=== PATIENT | male | born 1940 | race Caucasian/White ===

== ENCOUNTER 2017-04-20 00:18 | Emergency (ER) | payer OTHER, BC ==
[~2017-04-20] VITALS: Ht 172.7 cm; Wt 83.0 kg
[2017-04-20] MEDS ORDERED: CATAPRES0.2 MG PO (00:29)
[2017-04-20] MEDS ORDERED: APRESOLINE25 MG PO (00:30)
[2017-04-20] MEDS ORDERED: VALIUM2 MG PO (00:30)
[2017-04-20] MEDS ORDERED: HALCION0.25 MG PO (00:30)
[2017-04-20 01:25] LABS: BASOPHIL COUNT 0.1 K/uL (0-0.1); EOSINOPHIL (%) 0.8 % (0-5); EOSINOPHIL COUNT 0.1 K/uL (0-0.3); HEMATOCRIT 44.3 % (38.0-50.0); IMMATURE GRANULOCYTE (%) 0.7 % (0.0-0.7); IMMATURE GRANULOCYTE COUNT 0.1 K/uL; INSTRUMENT ABS NEUTROPHIL CT 5.1 K/uL; LYMPHOCYTE COUNT 1.6 K/uL (1.0-2.8); MCH 30.5 PG (29.0-34.0); MCHC 33.4 G/DL (30.0-36.0); MCV 91.2 FL (86-99); MEAN PLAT.VOLUME 11.8 uM^3 (9.0-12.4); MONOCYTE (%) 10.4 % (3-12); MONOCYTE COUNT 0.8 K/uL (0-0.8); NEUTROPHIL (%) 66.1 % (45-76); NEUTROPHIL COUNT 5.1 K/uL (1.8-6.4); PLATELET COUNT 186 K/uL (156-360); RBC DIS.WIDTH-CV 12.8 % (11.8-14.6); RBC DIS.WIDTH-SD 42.4 % (39-53); RED BLOOD COUNT 4.86 M/uL (4.00-5.50); WHITE BLOOD COUNT 7.7 K/uL (4.1-10.2)
[2017-04-20 01:35] LABS: CHLORIDE 105 mEq/L (99-109); POTASSIUM 4.3 mEq/L (3.7-5.4); SODIUM 141 mEq/L (136-147)
[2017-04-20 01:36] LABS: MAGNESIUM 2.4 mg/dL (1.3-2.7)
[2017-04-20 01:38] LABS: GLUCOSE 111 mg/dL (70-99)
[2017-04-20 01:39] LABS: ANION GAP 8 MEQ/L (2-14)
[2017-04-20 01:40] LABS: TOTAL BILIRUBIN 0.5 mg/dL (0.0-1.0)
[2017-04-20 01:41] LABS: ALKALINE PHOSPHATASE 70 IU/L (3-129); GFR ESTIMATE (CALCULATED) > 59 mL/min/
[2017-04-20 01:42] LABS: UREA NITROGEN (BUN) 21 mg/dL (9-23)
[2017-04-20 01:44] LABS: CREATINE KINASE 117 IU/L (1-294); TOTAL CK 117 IU/L (1-294)
[2017-04-20 01:45] LABS: TROP-I INTERPRETATION NEGATIVE; TROPONIN-I 0.01 ng/mL (0.0-0.30)
[2017-04-20 01:50] LABS: CK-MB 2.9 ng/mL (0.0-4.9)
[2017-04-20 02:41] VITALS: BP 171/88
== END 2017-04-20 02:41 | disposition home or self-care (01) ==
LOC: EME 00:18
PROVIDERS: Emergency Medicine
DX: I10 Essential (primary) hypertension (principal); R51 Headache; Z87.891 Personal history of nicotine dependence
CPT/HCPCS: 70450; 71020; 80053; 81003; 82550; 82553; 83735; 84484; 85025; 93005; 99281; 99285; J2060

== ENCOUNTER 2017-05-19 08:03 | Emergency (ER) | payer OTHER, BC ==
[~2017-05-19] VITALS: Ht 170.2 cm; Wt 86.7 kg
[~2017-05-19 08:03] MED LIST: APRESOLINE25 MG PO; CATAPRES0.2 MG PO; HALCION0.25 MG PO; VALIUM2 MG PO
[2017-05-19 09:08] LABS: HEMATOCRIT 39.9 % (38.0-50.0); MCH 31.4 PG (29.0-34.0); MCHC 33.8 G/DL (30.0-36.0); MCV 92.8 FL (86-99); MEAN PLAT.VOLUME 12.3 uM^3 (9.0-12.4); PLATELET COUNT 156 K/uL (156-360); RBC DIS.WIDTH-SD 43.9 % (39-53); WHITE BLOOD COUNT 6.8 K/uL (4.1-10.2)
[2017-05-19 09:20] LABS: ADD MIUA? NO; BILIRUBIN NEGATIVE; BLOOD NEGATIVE; COLOR YELLOW ((YELLOW)); GLUCOSE (STRIP) NEGATIVE; KETONES NEGATIVE; LEUKOCYTES NEGATIVE; NITRITE NEGATIVE; PROTEIN (STRIP) NEGATIVE; SPECIFIC GRAVITY 1.015 (1.000-1.030); UCUL ADDED? NO; UROBILINOGEN 0.2 MG/DL (0.2-1.0)
[2017-05-19 09:21] LABS: CHLORIDE 104 mEq/L (99-109); POTASSIUM 3.5 mEq/L (3.7-5.4); SODIUM 139 mEq/L (136-147)
[2017-05-19 09:23] LABS: GLUCOSE 110 mg/dL (70-99)
[2017-05-19 09:24] LABS: ANION GAP 7 MEQ/L (2-14)
[2017-05-19 09:25] LABS: TOTAL BILIRUBIN 0.2 mg/dL (0.0-1.0)
[2017-05-19 09:26] LABS: ALKALINE PHOSPHATASE 86 IU/L (3-129)
[2017-05-19 09:27] LABS: GFR ESTIMATE (CALCULATED) > 59 mL/min/ (58.99-99999)
[2017-05-19 09:28] LABS: UREA NITROGEN (BUN) 15 mg/dL (9-23)
[2017-05-19 09:30] LABS: LIPASE 51 U/L (1.0-51.0)
[2017-05-19] MEDS ORDERED: TAMIFLU75 MG PO (11:09)
[2017-05-19] MEDS ORDERED: HYCODAN SYRUP480 ML PO (11:09)
[2017-05-19 11:58] VITALS: BP 148/75
== END 2017-05-19 11:58 | disposition home or self-care (01) ==
LOC: EME 08:03
PROVIDERS: Emergency Medicine
DX: J10.1 Influenza due to other identified influenza virus with other respiratory manifestations (principal); I10 Essential (primary) hypertension; Z87.891 Personal history of nicotine dependence
CPT/HCPCS: 71010; 80053; 81003; 83605; 83690; 85027; 87040; 87502; 99281; 99285

== ENCOUNTER 2017-05-21 00:02 | Inpatient (IN) | payer OTHER, BC ==
[~2017-05-21] VITALS: Ht 170.2 cm; Wt 90.2 kg
[~2017-05-21 00:02] MED LIST changes: +HYCODAN SYRUP480 ML PO; +TAMIFLU75 MG PO
[2017-05-21 01:18] LABS: HEMATOCRIT 42.2 % (38.0-50.0); MCH 30.8 PG (29.0-34.0); MCHC 33.4 G/DL (30.0-36.0); MCV 92.1 FL (86-99); MEAN PLAT.VOLUME 12.3 uM^3 (9.0-12.4); PLATELET COUNT 156 K/uL (156-360); RBC DIS.WIDTH-CV 13.1 % (11.8-14.6); RED BLOOD COUNT 4.58 M/uL (4.00-5.50); WHITE BLOOD COUNT 18.7 K/uL (4.1-10.2)
[2017-05-21 01:34] LABS: CHLORIDE 102 mEq/L (99-109); POTASSIUM 3.9 mEq/L (3.7-5.4); SODIUM 138 mEq/L (136-147)
[2017-05-21 01:37] LABS: ANION GAP 15 MEQ/L (2-14)
[2017-05-21 01:39] LABS: GFR ESTIMATE (CALCULATED) 19 mL/min/ (58.99-99999)
[2017-05-21 01:42] LABS: TROP-I INTERPRETATION POSITIVE
[2017-05-21 01:44] LABS: TROPONIN-I 34.07 ng/mL (0.0-0.30)
[2017-05-21 01:54] LABS: EOSINOPHIL (%) 0 % (0-5); IMMATURE GRANULOCYTE COUNT 0.2 K/uL; INSTRUMENT ABS NEUTROPHIL CT 16.6 K/uL; LYMPHOCYTE COUNT 0.6 K/uL (1.0-2.8); MONOCYTE (%) 6.6 % (3-12); MONOCYTE COUNT 1.2 K/uL (0-0.8); NEUTROPHIL COUNT 16.6 K/uL (1.8-6.4)
[2017-05-21 02:19] LABS: GLUCOSE 79 mg/dL (70-99); UREA NITROGEN (BUN) 34 mg/dL (9-23)
[2017-05-21 02:21] LABS: CREATINE KINASE 20254 IU/L (1-294)
[2017-05-21 04:32] LABS: INTER. NORMALIZED RATIO 1.2; PROTHROMBIN TIME 13.9 SEC (10.2-12.9)
[2017-05-21 04:34] LABS: PTT 28.1 SEC (25-37)
[2017-05-21 04:47] LABS: ALKALINE PHOSPHATASE 91 IU/L (3-129); DIRECT BILIRUBIN 0.6 mg/dL (0.0-0.3); TOTAL BILIRUBIN 0.9 MG/DL (0.0-1.0)
[2017-05-21 06:19] LABS: HEMATOCRIT 36.3 % (38.0-50.0); MCH 30.9 PG (29.0-34.0); MCHC 33.6 G/DL (30.0-36.0); MCV 91.9 FL (86-99); MEAN PLAT.VOLUME 12.1 uM^3 (9.0-12.4); PLATELET COUNT 128 K/uL (156-360); RBC DIS.WIDTH-CV 13.2 % (11.8-14.6); RBC DIS.WIDTH-SD 45.4 % (39-53); RED BLOOD COUNT 3.95 M/uL (4.00-5.50); WHITE BLOOD COUNT 15.3 K/uL (4.1-10.2)
[2017-05-21 06:31] LABS: SERUM ETHYL ALCOHOL < 10 mg/dL
[2017-05-21 06:34] LABS: SALICYLATE < 5.0 MG/DL (15-30)
[2017-05-21 06:39] LABS: TROP-I INTERPRETATION POSITIVE
[2017-05-21] MEDS ORDERED: VALIUM2 MG PO (09:19)
[2017-05-21] MEDS ORDERED: HYDRALAZINE HCL25 MG PO (09:19)
[2017-05-21] MEDS ORDERED: CATAPRES0.2 MG PO (09:21)
[2017-05-21] MEDS ORDERED: MIRALAX119 GM PO (09:22)
[2017-05-21] MEDS ORDERED: CLONAZEPAM0.5 MG PO (09:22)
[2017-05-21] MEDS ORDERED: SENNA-S TABLET1 EACH PO (09:23)
[2017-05-21] MEDS ORDERED: CONSTULOSE10 GM/15 M PO (09:24)
[2017-05-21] MEDS ORDERED: TRAZODONE HCL100 MG PO (09:25)
[2017-05-21 09:39] LABS: CHLORIDE 105 mEq/L (99-109); POTASSIUM 3.7 mEq/L (3.7-5.4); SODIUM 138 mEq/L (136-147)
[2017-05-21 09:40] VITALS: BP 135/84
[2017-05-21 09:42] LABS: ANION GAP 14 MEQ/L (2-14)
[2017-05-21 09:43] LABS: GLUCOSE 131 mg/dL (70-99)
[2017-05-21 09:44] LABS: GFR ESTIMATE (CALCULATED) 20 mL/min/ (58.99-99999)
[2017-05-21 09:45] LABS: UREA NITROGEN (BUN) 37 mg/dL (9-23)
[2017-05-21 09:53] LABS: CK-MB 186.5 ng/mL (0.0-4.9)
[2017-05-21 10:00] VITALS: BP 138/86
[2017-05-21 11:01] LABS: METH RESISTANT S AUREUS PCR NEGATIVE (NEGATIVE)
[2017-05-21 11:04] LABS: CREATINE KINASE 22260 IU/L (1-294)
[2017-05-21 11:05] LABS: PROBE CHECK PASS; SPECIMEN PROCESSING CONTROL PASS
[2017-05-21 11:06] LABS: TOTAL CK 22260 IU/L (1-294)
[2017-05-21 12:00] VITALS: BP 143/93
[2017-05-21 13:24] LABS: TROP-I INTERPRETATION POSITIVE; TROPONIN-I 23.13 ng/mL (0.0-0.30)
[2017-05-21 17:00] VITALS: BP 162/94
[2017-05-21 20:00] VITALS: BP 162/88
[2017-05-22] VITALS (7 sets, daily range): BP systolic 161–194; BP diastolic 80–97
[2017-05-22 05:51] LABS: MCH 31.5 PG (29.0-34.0); MCHC 34.1 G/DL (30.0-36.0); MCV 92.5 FL (86-99); MEAN PLAT.VOLUME 12.6 uM^3 (9.0-12.4); PLATELET COUNT 123 K/uL (156-360); RBC DIS.WIDTH-CV 13.3 % (11.8-14.6); RBC DIS.WIDTH-SD 46.2 % (39-53); WHITE BLOOD COUNT 14.7 K/uL (4.1-10.2)
[2017-05-22 06:01] LABS: INTER. NORMALIZED RATIO 1.3; PROTHROMBIN TIME 14.5 SEC (10.2-12.9)
[2017-05-22 06:05] LABS: TROP-I INTERPRETATION POSITIVE; TROPONIN-I 13.95 ng/mL (0.0-0.30)
[2017-05-22 06:43] LABS: ALKALINE PHOSPHATASE 85 IU/L (3-129); ANION GAP 8 MEQ/L (2-14); CHLORIDE 106 MEQ/L (99-109); DIRECT BILIRUBIN 0.4 mg/dL (0.0-0.3); SAMPLE HEMOLYSIS CHECK 0; SAMPLE ICTERIC CHECK 0; SAMPLE LIPEMIA CHECK 0; SODIUM 137 MEQ/L (136-147); TOTAL BILIRUBIN 0.8 MG/DL (0.0-1.0); UREA NITROGEN (BUN) 54 mg/dL (9-23)
[2017-05-22 06:48] LABS: CREATINE KINASE 11296 IU/L (1-294); GFR ESTIMATE (CALCULATED) 15 mL/min/ (58.99-99999); GLUCOSE 76 mg/dL (70-99)
[2017-05-22 16:39] LABS: ADD MIUA? YES; BILIRUBIN NEGATIVE; BLOOD LARGE; COLOR YELLOW ((YELLOW)); GLUCOSE (STRIP) NEGATIVE; KETONES NEGATIVE; LEUKOCYTES NEGATIVE; NITRITE NEGATIVE; PROTEIN (STRIP) NEGATIVE; SPECIFIC GRAVITY 1.005 (1.000-1.030); UROBILINOGEN 0.2 MG/DL (0.2-1.0)
[2017-05-22 17:31] LABS: BACTERIA 1+ /HPF; EPITHELIAL CELLS 1+ /HPF; MUCUS 1+ /LPF; WHITE BLOOD CELLS 0-5 /HPF (0-5)
[2017-05-23] VITALS (7 sets, daily range): BP systolic 139–201; BP diastolic 70–84
[2017-05-23 05:16] LABS: MCH 30.2 PG (29.0-34.0); MCHC 33.4 G/DL (30.0-36.0); MCV 90.2 FL (86-99); MEAN PLAT.VOLUME 12.5 uM^3 (9.0-12.4); PLATELET COUNT 137 K/uL (156-360); RBC DIS.WIDTH-CV 13.2 % (11.8-14.6); RBC DIS.WIDTH-SD 44.4 % (39-53); RED BLOOD COUNT 3.88 M/uL (4.00-5.50); WHITE BLOOD COUNT 12.3 K/uL (4.1-10.2)
[2017-05-23 05:18] LABS: INTER. NORMALIZED RATIO 1.1; PROTHROMBIN TIME 12.8 SEC (10.2-12.9)
[2017-05-23 09:24] LABS: ANION GAP 11 MEQ/L (2-14); CHLORIDE 110 MEQ/L (99-109); DIRECT BILIRUBIN 0.4 mg/dL (0.0-0.3); GFR ESTIMATE (CALCULATED) 15 mL/min/ (58.99-99999); GLUCOSE 81 mg/dL (70-99); POTASSIUM 3.8 MEQ/L (3.7-5.4); SAMPLE HEMOLYSIS CHECK 0; SAMPLE ICTERIC CHECK 0; SAMPLE LIPEMIA CHECK 0; SODIUM 141 MEQ/L (136-147); TOTAL BILIRUBIN 0.9 MG/DL (0.0-1.0); UREA NITROGEN (BUN) 64 mg/dL (9-23)
[2017-05-23 09:25] LABS: ALKALINE PHOSPHATASE 111 IU/L (3-129); CREATINE KINASE 3732 IU/L (1-294)
[2017-05-24 04:00] VITALS: BP 154/72
[2017-05-24 06:21] LABS: PROTHROMBIN TIME 11.6 SEC (10.2-12.9)
[2017-05-24 07:10] LABS: ALKALINE PHOSPHATASE 113 IU/L (3-129); ANION GAP 11 MEQ/L (2-14); CHLORIDE 112 MEQ/L (99-109); DIRECT BILIRUBIN 0.3 mg/dL (0.0-0.3); GFR ESTIMATE (CALCULATED) 17 mL/min/ (58.99-99999); GLUCOSE 74 mg/dL (70-99); POTASSIUM 3.5 MEQ/L (3.7-5.4); SAMPLE HEMOLYSIS CHECK 0; SAMPLE ICTERIC CHECK 0; SAMPLE LIPEMIA CHECK 0; SODIUM 142 MEQ/L (136-147); TOTAL BILIRUBIN 0.9 MG/DL (0.0-1.0); UREA NITROGEN (BUN) 67 mg/dL (9-23)
[2017-05-24 07:13] LABS: CREATINE KINASE 1266 IU/L (1-294)
[2017-05-24 10:00] VITALS: BP 184/82
[2017-05-24 12:40] VITALS: BP 159/75
[2017-05-24 16:51] VITALS: BP 194/88
[2017-05-24 20:28] VITALS: BP 139/67
[2017-05-25] VITALS (7 sets, daily range): BP systolic 154–199; BP diastolic 72–90
[2017-05-25 06:32] LABS: MCH 30.7 PG (29.0-34.0); MCHC 33.8 G/DL (30.0-36.0); MCV 90.9 FL (86-99); MEAN PLAT.VOLUME 12.1 uM^3 (9.0-12.4); NRBC (%) 0.2 /100 WBC (0-0); PLATELET COUNT 176 K/uL (156-360); RBC DIS.WIDTH-CV 13.6 % (11.8-14.6); RBC DIS.WIDTH-SD 45.3 % (39-53); RED BLOOD COUNT 4.07 M/uL (4.00-5.50); WHITE BLOOD COUNT 10.8 K/uL (4.1-10.2)
[2017-05-25 07:06] LABS: ALKALINE PHOSPHATASE 111 IU/L (3-129); ANION GAP 14 MEQ/L (2-14); CHLORIDE 112 MEQ/L (99-109); CREATINE KINASE 860 IU/L (1-294); DIRECT BILIRUBIN 0.2 mg/dL (0.0-0.3); GLUCOSE 87 mg/dL (70-99); POTASSIUM 3.2 MEQ/L (3.7-5.4); SAMPLE HEMOLYSIS CHECK 0; SAMPLE ICTERIC CHECK 0; SAMPLE LIPEMIA CHECK 0; SODIUM 144 MEQ/L (136-147); UREA NITROGEN (BUN) 63 mg/dL (9-23)
[2017-05-25 07:08] LABS: GFR ESTIMATE (CALCULATED) 22 mL/min/ (58.99-99999); TOTAL BILIRUBIN 0.7 MG/DL (0.0-1.0)
[2017-05-25 07:10] LABS: TROP-I INTERPRETATION POSITIVE; TROPONIN-I 1.08 ng/mL (0.0-0.30)
[2017-05-25 08:26] LABS: MAGNESIUM 2.2 mg/dl (1.3-2.7)
[2017-05-26 00:01] VITALS: BP 158/82
[2017-05-26 04:12] VITALS: BP 162/78
[2017-05-26 07:26] LABS: HEMATOCRIT 38.2 % (38.0-50.0); MCHC 34.3 G/DL (30.0-36.0); MCV 90.5 FL (86-99); MEAN PLAT.VOLUME 12.1 uM^3 (9.0-12.4); PLATELET COUNT 195 K/uL (156-360); RBC DIS.WIDTH-CV 13.9 % (11.8-14.6); RBC DIS.WIDTH-SD 45.8 % (39-53); RED BLOOD COUNT 4.22 M/uL (4.00-5.50); WHITE BLOOD COUNT 11.2 K/uL (4.1-10.2)
[2017-05-26 07:44] VITALS: BP 192/84
[2017-05-26 08:10] LABS: ALKALINE PHOSPHATASE 105 IU/L (3-129); ANION GAP 12 MEQ/L (2-14); CHLORIDE 114 MEQ/L (99-109); DIRECT BILIRUBIN 0.1 mg/dL (0.0-0.3); GFR ESTIMATE (CALCULATED) 24 mL/min/ (58.99-99999); GLUCOSE 91 mg/dL (70-99); POTASSIUM 3.4 MEQ/L (3.7-5.4); SAMPLE HEMOLYSIS CHECK 0; SAMPLE ICTERIC CHECK 0; SAMPLE LIPEMIA CHECK 0; SODIUM 147 MEQ/L (136-147); TOTAL BILIRUBIN 0.7 MG/DL (0.0-1.0); UREA NITROGEN (BUN) 56 mg/dL (9-23)
[2017-05-26 11:34] VITALS: BP 168/70
[2017-05-26 16:49] VITALS: BP 168/76
[2017-05-26 20:44] VITALS: BP 178/80
[2017-05-27 03:51] VITALS: BP 170/80
[2017-05-27 06:12] LABS: MEAN PLAT.VOLUME 11.4 uM^3 (9.0-12.4); PLATELET COUNT 157 K/uL (156-360)
[2017-05-27 06:32] LABS: ALKALINE PHOSPHATASE 100 IU/L (3-129); ANION GAP 10 MEQ/L (2-14); CHLORIDE 115 MEQ/L (99-109); DIRECT BILIRUBIN 0.2 mg/dL (0.0-0.3); GFR ESTIMATE (CALCULATED) 28 mL/min/ (58.99-99999); GLUCOSE 87 mg/dL (70-99); POTASSIUM 3.7 MEQ/L (3.7-5.4); SAMPLE HEMOLYSIS CHECK 0; SAMPLE ICTERIC CHECK 0; SAMPLE LIPEMIA CHECK 0; SODIUM 146 MEQ/L (136-147); TOTAL BILIRUBIN 0.7 MG/DL (0.0-1.0); UREA NITROGEN (BUN) 51 mg/dL (9-23)
[2017-05-27 07:11] VITALS: BP 179/85
[2017-05-27 08:36] LABS: HEMATOCRIT 47.4 % (38.0-50.0); MCHC 34.6 G/DL (30.0-36.0); MCV 89.6 FL (86-99); RBC DIS.WIDTH-CV 14.1 % (11.8-14.6); RBC DIS.WIDTH-SD 45.1 % (39-53); WHITE BLOOD COUNT 9.4 K/uL (4.1-10.2)
[2017-05-27 08:37] LABS: RED BLOOD COUNT 5.29 M/uL (4.00-5.50)
[2017-05-27 10:37] VITALS: BP 155/82
[2017-05-27 15:19] VITALS: BP 150/87
[2017-05-27 19:26] VITALS: BP 140/62
[2017-05-27 23:48] VITALS: BP 122/66
[2017-05-28 03:41] VITALS: BP 145/76
[2017-05-28 06:54] LABS: HEMATOCRIT 37.3 % (38.0-50.0); MCH 29.9 PG (29.0-34.0); MCV 90.8 FL (86-99); MEAN PLAT.VOLUME 11.1 uM^3 (9.0-12.4); RBC DIS.WIDTH-CV 13.9 % (11.8-14.6); RBC DIS.WIDTH-SD 45.7 % (39-53); WHITE BLOOD COUNT 9.4 K/uL (4.1-10.2)
[2017-05-28 06:56] LABS: PLATELET COUNT 243 K/uL (156-360); RED BLOOD COUNT 4.11 M/uL (4.00-5.50)
[2017-05-28 07:06] VITALS: BP 145/80
[2017-05-28 07:08] LABS: ANION GAP 8 MEQ/L (2-14); CHLORIDE 112 MEQ/L (99-109); GFR ESTIMATE (CALCULATED) 31 mL/min/ (58.99-99999); GLUCOSE 89 mg/dL (70-99); POTASSIUM 3.5 MEQ/L (3.7-5.4); SAMPLE HEMOLYSIS CHECK 0; SAMPLE ICTERIC CHECK 0; SAMPLE LIPEMIA CHECK 0; SODIUM 146 MEQ/L (136-147); UREA NITROGEN (BUN) 47 mg/dL (9-23)
[2017-05-28] MEDS ORDERED: LATANOPROST2.5 ML LEFT EYE (08:49)
[2017-05-28] MEDS ORDERED: APRESOLINE100 MG PO (11:30)
[2017-05-28] MEDS ORDERED: CLONIDINE HCL0.2 MG PO (11:30)
[2017-05-28] MEDS ORDERED: TAMSULOSIN HCL0.4 MG PO (11:30)
[2017-05-28] MEDS ORDERED: FLONASE16 G1 BOTH NARES (11:30)
[2017-05-28] MEDS ORDERED: ASPIR-LOW81 MG PO (11:30)
[2017-05-28] MEDS ORDERED: LOPRESSOR50 MG PO (11:30)
[2017-05-28] MEDS ORDERED: AMOX TR-K CLV1 EAC3 PO (11:30)
[2017-05-28] MEDS ORDERED: SPIRONOLACTONE25 MG PO (11:30)
[2017-05-28 11:50] VITALS: BP 160/85
[2017-05-28] MEDS ORDERED: SIMETHICONE80 MG PO (14:19)
== END 2017-05-28 13:10 | DRG 193 ==
LOC: EME → EDBD 00:02 → EME 00:02 → 4WEST 04:39 → 3EAST 04:39 → EDOF 04:39 → 4EAST 04:39 → CANRESERV 04:40 → ENRESERV 04:40 → 4WEST 09:35 → ENRESERV 05-22 08:02 → 4EAST 05-22 12:10 → ENRESERV 05-24 13:45 → 3EAST 05-24 16:18
PROVIDERS: Emergency Medicine; Hospitalist; Internal Medicine; Internal Medicine Gastroenterology
DX: J10.1 Influenza due to other identified influenza virus with other respiratory manifestations (principal); J18.9 Pneumonia, unspecified organism; M62.82 Rhabdomyolysis; I12.9 Hypertensive chronic kidney disease with stage 1 through stage 4 chronic kidney disease, or unspecified chronic kidney disease; I21.A1 Myocardial infarction type 2; N17.9 Acute kidney failure, unspecified; K59.00 Constipation, unspecified; R94.5 Abnormal results of liver function studies; R74.0 Nonspecific elevation of levels of transaminase and lactic acid dehydrogenase [LDH]; N18.2 Chronic kidney disease, stage 2 (mild); R33.9 Retention of urine, unspecified; E86.0 Dehydration; M19.011 Primary osteoarthritis, right shoulder; Z68.31 Body mass index [BMI] 31.0-31.9, adult; N32.3 Diverticulum of bladder; N28.1 Cyst of kidney, acquired; E87.6 Hypokalemia; R04.0 Epistaxis; R09.02 Hypoxemia; Z85.46 Personal history of malignant neoplasm of prostate; Z87.891 Personal history of nicotine dependence; Z79.899 Other long term (current) drug therapy; Z80.42 Family history of malignant neoplasm of prostate; Z90.79 Acquired absence of other genital organ(s)
CPT/HCPCS: 70450; 70486; 71010; 72125; 73030; 73564; 76705; 76770; 80048; 80048 91; 80053; 80069; 80076; 81003; 82248; 82436; 82550; 82550 91; 82553; 83605; 83690; 83735; 84300; 84484; 85025; 85027; 85610; 85730; 86021 90; 87040; 87502; 87641; 93005; 93306; 94644; 94799; 97530 GO; 97530 GP; 99202; 99281; 99285; G0480; J0456; J0692; J0696; J1644; J1956; J3370; J7030; S0028

== ENCOUNTER 2017-05-28 10:51 | Inpatient (IN) | payer OTHER, BC ==
[~2017-05-28] VITALS: Ht 170.2 cm; Wt 91.0 kg
[~2017-05-28 10:51] MED LIST changes: +CLONAZEPAM0.5 MG PO; +CONSTULOSE10 GM/15 M PO; +HYDRALAZINE HCL25 MG PO; +LATANOPROST2.5 ML LEFT EYE; +MIRALAX119 GM PO; +SENNA-S TABLET1 EACH PO; +TRAZODONE HCL100 MG PO
[2017-05-28] MEDS ORDERED: TAMSULOSIN HCL0.4 MG PO (11:30)
[2017-05-28] MEDS ORDERED: APRESOLINE100 MG PO (11:30)
[2017-05-28] MEDS ORDERED: AMOX TR-K CLV1 EAC3 PO (11:30)
[2017-05-28] MEDS ORDERED: LOPRESSOR50 MG PO (11:30)
[2017-05-28] MEDS ORDERED: ASPIR-LOW81 MG PO (11:30)
[2017-05-28] MEDS ORDERED: FLONASE16 G1 BOTH NARES (11:30)
[2017-05-28] MEDS ORDERED: SPIRONOLACTONE25 MG PO (11:30)
[2017-05-28] MEDS ORDERED: CLONIDINE HCL0.2 MG PO (11:30)
[2017-05-28 13:39] VITALS: BP 159/75
[2017-05-28] MEDS ORDERED: SIMETHICONE80 MG PO (14:19)
[2017-05-29 00:22] VITALS: BP 124/61
[2017-05-29 05:34] VITALS: BP 158/78; BP 172/78
[2017-05-29 06:08] LABS: HEMATOCRIT 36.3 % (38.0-50.0); HEMOGLOBIN 12.2 G/DL (12.5-16.6); MCH 31.1 PG (29.0-34.0); MCHC 33.6 G/DL (30.0-36.0); MCV 92.6 FL (86-99); PLATELET COUNT 229 K/uL (156-360); RBC DIS.WIDTH-CV 14.1 % (11.8-14.6); RBC DIS.WIDTH-SD 46.9 % (39-53); RED BLOOD COUNT 3.92 M/uL (4.00-5.50); WHITE BLOOD COUNT 8.9 K/uL (4.1-10.2)
[2017-05-29 06:43] LABS: ALBUMIN 2.7 G/DL (3.2-4.8); ALKALINE PHOSPHATASE 83 IU/L (3-129); ALT (GPT) 279 IU/L (3-49); AST (GOT) 64 IU/L (2-34); CHLORIDE 111 MEQ/L (99-109); CREATININE 1.9 MG/DL (0.6-1.3); GFR ESTIMATE (CALCULATED) 37 mL/min/ (58.99-99999); GLUCOSE 85 mg/dL (70-99); POTASSIUM 3.8 MEQ/L (3.7-5.4); SODIUM 144 MEQ/L (136-147); TOTAL BILIRUBIN 0.7 MG/DL (0.0-1.0); TOTAL PROTEIN 4.9 G/DL (6.4-8.3); UREA NITROGEN (BUN) 46 mg/dL (9-23)
[2017-05-29 15:06] VITALS: BP 136/60
[2017-05-30 06:03] VITALS: BP 138/72
[2017-05-30 16:00] VITALS: BP 135/60
[2017-05-31 04:03] VITALS: BP 152/70
[2017-05-31 15:07] VITALS: BP 120/55
[2017-06-01 05:29] VITALS: BP 140/65
[2017-06-01 15:00] VITALS: BP 145/60
[2017-06-01 20:49] VITALS: BP 139/64
[2017-06-02 06:21] VITALS: BP 138/70
[2017-06-02 15:17] VITALS: BP 130/60
[2017-06-03 06:04] VITALS: BP 142/70
[2017-06-03 15:13] VITALS: BP 115/60
[2017-06-04 05:52] VITALS: BP 154/78
[2017-06-04 15:06] VITALS: BP 131/78
[2017-06-05 05:16] VITALS: BP 138/79
[2017-06-05 15:11] VITALS: BP 120/82
[2017-06-05 15:22] LABS: BASOPHIL (%) 1.8 % (0-1); BASOPHIL COUNT 0.1 K/uL (0-0.1); EOSINOPHIL (%) 2.4 % (0-5); EOSINOPHIL COUNT 0.1 K/uL (0-0.3); HEMATOCRIT 32.6 % (38.0-50.0); HEMOGLOBIN 10.6 G/DL (12.5-16.6); IMMATURE GRANULOCYTE (%) 0.8 % (0.0-0.7); LYMPHOCYTE (%) 24.4 % (15-42); LYMPHOCYTE COUNT 1.2 K/uL (1.0-2.8); MCH 30.5 PG (29.0-34.0); MCHC 32.5 G/DL (30.0-36.0); MCV 93.7 FL (86-99); MONOCYTE (%) 17.2 % (3-12); MONOCYTE COUNT 0.9 K/uL (0-0.8); NEUTROPHIL (%) 53.4 % (45-76); NEUTROPHIL COUNT 2.6 K/uL (1.8-6.4); PLATELET COUNT 260 K/uL (156-360); RBC DIS.WIDTH-CV 13.8 % (11.8-14.6); RBC DIS.WIDTH-SD 46.6 % (39-53); RED BLOOD COUNT 3.48 M/uL (4.00-5.50)
[2017-06-05 15:43] LABS: ALBUMIN 3.1 G/DL (3.2-4.8); ALKALINE PHOSPHATASE 79 IU/L (3-129); ALT (GPT) 80 IU/L (3-49); AST (GOT) 32 IU/L (2-34); CHLORIDE 106 MEQ/L (99-109); CREATININE 1.6 MG/DL (0.6-1.3); GFR ESTIMATE (CALCULATED) 45 mL/min/ (58.99-99999); GLUCOSE 98 mg/dL (70-99); POTASSIUM 4.3 MEQ/L (3.7-5.4); SODIUM 141 MEQ/L (136-147); TOTAL BILIRUBIN 0.6 MG/DL (0.0-1.0); TOTAL PROTEIN 5.9 G/DL (6.4-8.3); UREA NITROGEN (BUN) 35 mg/dL (9-23)
[2017-06-06 05:27] VITALS: BP 110/60
[2017-06-06 15:24] VITALS: BP 130/72
[2017-06-07 05:20] VITALS: BP 128/62
[2017-06-07] MEDS ORDERED: SPIRONOLACTONE25 MG PO (11:03)
[2017-06-07] MEDS ORDERED: NITROSTAT0.4 MG SL (11:03)
[2017-06-07] MEDS ORDERED: FLONASE16 G1 BOTH NARES (11:03)
[2017-06-07] MEDS ORDERED: LOPRESSOR25 MG PO (11:03)
[2017-06-07] MEDS ORDERED: ASPIR-LOW81 MG PO (11:03)
[2017-06-07] MEDS ORDERED: CLONIDINE HCL0.2 MG PO (11:03)
[2017-06-07] MEDS ORDERED: APRESOLINE50 MG PO (11:03)
[2017-06-07] MEDS ORDERED: BUTALB-APAP-CA1 EACH PO (11:03)
[2017-06-07] MEDS ORDERED: TAMSULOSIN HCL0.4 MG PO (11:03)
[2017-06-07] MEDS ORDERED: FAMOTIDINE20 MG PO (11:03)
== END 2017-06-07 12:53 | disposition home health service (06) | DRG 945 ==
LOC: 3WEST 10:51 → ENPENDDIS 06-07 → 3WEST 06-07 12:53
PROVIDERS: Physical Medicine & Rehabilitation Pain Medicine; Psychiatry & Neurology Neurology
PROC: F07M0ZZ Range of Motion and Joint Mobility Treatment of Musculoskeletal System - Whole Body (ICD-10-PCS; principal; 2017-05-28)
DX: R53.1 Weakness (principal); J10.00 Influenza due to other identified influenza virus with unspecified type of pneumonia; G93.40 Encephalopathy, unspecified; R26.2 Difficulty in walking, not elsewhere classified; D64.9 Anemia, unspecified; E77.8 Other disorders of glycoprotein metabolism; E87.6 Hypokalemia; E88.09 Other disorders of plasma-protein metabolism, not elsewhere classified; I12.9 Hypertensive chronic kidney disease with stage 1 through stage 4 chronic kidney disease, or unspecified chronic kidney disease; N18.9 Chronic kidney disease, unspecified; N28.1 Cyst of kidney, acquired; K80.20 Calculus of gallbladder without cholecystitis without obstruction; G62.9 Polyneuropathy, unspecified; K59.09 Other constipation; R00.1 Bradycardia, unspecified; R26.9 Unspecified abnormalities of gait and mobility; R33.9 Retention of urine, unspecified; R60.9 Edema, unspecified; R74.0 Nonspecific elevation of levels of transaminase and lactic acid dehydrogenase [LDH]; M19.90 Unspecified osteoarthritis, unspecified site; Z68.31 Body mass index [BMI] 31.0-31.9, adult; Z80.42 Family history of malignant neoplasm of prostate; Z85.46 Personal history of malignant neoplasm of prostate; Z87.891 Personal history of nicotine dependence
CPT/HCPCS: 71010; 80053; 85025; 85027; 85651; 86140; 87040; 97110 GO; 97530 GP; J1650